=== PATIENT | male | born 2000 | race Caucasian/White ===

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

== ENCOUNTER 2019-05-08 23:55 | Emergency (ER) | payer OTHER ==
[~2019-05-08] VITALS: Ht 180.3 cm; Wt 118.4 kg
[2019-05-08 23:59] VITALS: Ht 180.3 cm; Wt 118.4 kg
[2019-05-09 01:54] VITALS: BP 127/79
== END 2019-05-09 01:54 | disposition home or self-care (01) ==
LOC: ED 23:55
DX: S39.012A Strain of muscle, fascia and tendon of lower back, initial encounter (principal); S00.03XA Contusion of scalp, initial encounter; V43.52XA Car driver injured in collision with other type car in traffic accident, initial encounter; Y93.I9 Activity, other involving external motion; Y92.488 Other paved roadways as the place of occurrence of the external cause; Y99.8 Other external cause status